=== PATIENT | male | born 1940 | race Caucasian/White ===

== ENCOUNTER → 2016-07-26 21:25 | Outpatient (CLI) | payer MEDICARE, BC ==
[2016-02-23 07:21] VITALS: BMI 34.3
[~2016-07-26 21:25] MED LIST: ACETAMINOPHEN325 MG PO; ADDERALL 10 MG10 MG PO; ADVIL200 MG PO; BAYER CHEWABLE81 MG PO; BYSTOLIC10 MG PO; FISH OIL 1,0001 CA1 PO; ISOSORBIDE MONO30 M1 PO; KLOR-CON 1010 MEQ PO; LISINOPRIL-HCTZ1 T11 PO; METOPROLOL TART50 MG PO; NORVASC5 MG PO; PLAVIX75 MG PO; PRAVACHOL40 MG PO; PRINIVIL20 MG PO; TESTOSTERON200 MG/ML IM; ZESTORETIC 20-1 EACH PO
[2016-07-26 22:10] LABS: CALC OSMOLALITY 284 mosm/kg (275-300); CALCIUM 9.4 mg/dL (8.5-10.1); CARBON DIOXIDE 26.7 mmol/L (21.0-32.0); CHLORIDE - SERUM 105 mmol/L (98-107); GLUCOSE 137 mg/dL (74-106); POTASSIUM - SERUM 3.8 mmol/L (3.5-5.1); SODIUM 141 mmol/L (136-145); UREA NITROGEN 18 mg/dL (7-18); eGFR NON AFRICAN AMERICAN 78 mL/min (90-120)
== END | disposition home or self-care (01) ==
LOC: D.LABREF 21:25
PROVIDERS: Nurse Practitioner
DX: I10 Essential (primary) hypertension (principal)

== ENCOUNTER → 2017-06-29 10:01 | Outpatient (CLI) | payer MEDICARE, BC ==
--- NOTE | ~2017-06-29 | OP ---
PATIENT NAME: ANA DUFFY MEDICAL RECORD: [id number] :44 LOCATION:D.CAT ADMISSION DATE: SURGEON: MIKE KING MD DATE OF OPERATION: 06/29/2017 PROCEDURES: 1. Left heart catheterization. 2. Selective coronary angiography. 3. Left ventriculogram. 4. Intravascular ultrasound of the LAD. PROCEDURE IN DETAIL: After informed consent was obtained and after a detailed explanation of the risks, benefits as well as alternative therapies, the patient elected to proceed with angiogram and angioplasty. The right radial area was prepped and draped in normal sterile fashion. Right radial artery was cannulated via modified Seldinger technique with placement of 5-Argentine sheath. All catheters exchanged through this sheath. FINDINGS: Left ventriculogram was performed in standard 30-degree YANEZ view, reveals preserved cardiac wall motion, ejection fraction 55%. SELECTIVE CORONARY ANGIOGRAPHY: 1. Left main is with no significant angiographic disease. 2. Left anterior descending has previously placed stent. This is widely patent with no significant restenosis. No disease elsewise greater than 20% throughout the LAD confirmed by intravascular ultrasound. 3. The left circumflex is a very large vessel with [id number] irregularities, but no flow-limiting stenosis. 4. The right coronary artery has previously placed stent. This is widely patent with no significant restenosis. No disease elsewise at the RCA or its branches. OVERALL IMPRESSION: Wide patency of the previously placed stents. No disease elsewise. Preserved left ventricular function. Evaluate noncardiac etiology of chest pain. TRANSINT:[id number] Voice Confirmation ID: [id number] DOCUMENT ID: [id number] MIKE KING MD at 1153 CC: [id number] DICTATION DATE: 06/29/17 1433 PANELBOARD OPERATOR: 06/29/17 1608 DEP CLI 06/29/17 [place] [address]
--- NOTE | ~2017-06-29 | HEMODYNAMI ---
PATIENT:ANA DUFFY MEDICAL RECORD: [id number] : 44 LOCATION:JUAN A ADMISSION DATE: 06/29/17 Generatedon:06/29/201714:35 Patient name: ANA DUFFY Patient #: [id number] SSN: : 1940 Date of study: 06/29/2017 Page: Of Hemodynamic Procedure Report Patient Data Patient Demographics Procedure consent was obtained First Name: ANA Gender: Male Last Name: TATI : 1940 Patient #: [id number] Age: 76 year(s) Race: Additional ID: [id number] Contact details [address]: [address] [place] [address] State: [place] City: [place] Zip code: [address] Past Medical History History of disease Date Diagnosis Comments CAD Allergies Allergen Reaction Date Comments Reported Sulfa drugs 02/23/2016 Lipitor 02/23/2016 Other allergy 02/23/2016 ampicillin Other allergy 06/29/2017 AMPICILLIN, SULFA, LIPITOR Admission Admission Data Admission Date: 06/29/2017 Admission Time: 10:01 Lab Results Lab Result Date: 06/29/2017 Lab Result Time: 0:00 Biochemistry Name Units Result Min Max BUN mg/dl 20 --(----)*- 7 18 Creatinine mg/dl 0.8 --(-*--)-- 0.6 1.3 CBC Name Units Result Min Max Hemoglobin g/dl 14 --(*---)-- 13.5 17.5 Procedure Procedure Types Cath Procedure Diagnostic Procedure LHC LHC w/Coronaries FFR/IVUS Intra-Coronary IVUS Initial Miscellaneous Procedures Moderate Sedation up to 15 minutes Procedure Description Procedure Date Procedure Date: 06/29/2017 Procedure Start Time: 14:19 Procedure End Time: 14:33 Procedure Staff Name Function Kirit Stokes MD Performing Physician Anne-Marie Webber RT Monitor Juan Alberto Kaplan RT Scrub Zak Zurita RN Nurse Procedure Data Cath Procedure Fluoroscopy Diagnostic fluoroscopy Total fluoroscopy Time: 3 time: 3 min min Diagnostic fluoroscopy Total fluoroscopy dose: 922 dose: 922 mGy mGy Contrast Material Contrast Material Type Amount (ml) Isovue 300 88 Entry Location Entry Primary Successful Side Size Upsize Upsize Entry Closure Albarado ccessful Closure Location (Fr) 1 (Fr) 2 (Fr) Remarks Device Remarks Radial Right 6 Fr Mechanical artery Short Compression Estimated blood loss: 5 ml Diagnostic catheters Device Type Used For End Catheter Placement DIAGNOSTIC Quebeck 110cm 5 Procedure Fr catheter ([id number]) Procedure Complications No complications Procedure Medications Medication Administration Route Dosage 0.9% NaCl I.V. 100 ml/hr Oxygen NC 2 l/min Heparin Flush Bag added to field 2 bags (1000units/500ml NS) Lidocaine 2% added to field 20 Radial Cocktail added to field 1 syringe (Verapomil 2mg/Nitro 400mcg/Heparin 1500units) Versed I.V. 2 mg Fentanyl I.V. 100 mcg Radial Cocktail I.A. 1 syringe (Verapomil 2mg/Nitro 400mcg/Heparin 1500units) Benadryl I.V. 50 mg Hemodynamics Rest HGB: 14 (g/dl) Heart Rate: 70 (bpm) Snapshots Pre Cath Intra NCS Post Cath Vital Signs Time Heart Resp SPO2 etCO2 NIBP (mmHg) Rhythm Pain Sedation Rate (ipm) (%) (mmHg) Status Level (bpm) 14:11:37 71 24 96 144/98(116) Paced 0 (11) 10(A) , No pain 14:16:20 69 18 94 147/97(112) Paced 0 (11) 10(A) , No pain 14:21:02 69 18 94 142/91(111) Paced 0 (11) 9(A) , No pain 14:25:45 70 16 93 0 131/72(106) Paced 0 (11) 9(A) , No pain 14:30:28 69 17 94 0 128/78(108) Paced 0 (11) 9(A) , No pain Medications Time Medication Route Dose Verified Delivered Reason Notes Effectiveness by by 14:14:07 0.9% NaCl I.V. 100 Zak Zak Per ml/hr Parminder dang RN RN 14:14:27 Benadryl I.V. 50 mg Zak Zak Per Lorigan Lorigan physician RN RN 14:14:27 Oxygen NC 2 l/min Zak Zak Per Parminder adng RN RN 14:14:39 Heparin Flush added 2 bags Zak Zak used for Bag to Parminder Zurita procedure (1000units/500ml field RN RN NS) 14:14:51 Lidocaine 2% added 20ml Zak Zak for local to vial Lorigan Parminder anesthetic RN RN 14:15:02 Radial Cocktail added 1 Zak Zak used for (Verapomil to syringe Lorigan Parminder procedure 2mg/Nitro field JOHNSON RN 400mcg/Heparin 1500units) 14:16:32 Versed I.V. 2 mg Zak Zak for sedation Parminder Zurita RN RN 14:16:43 Fentanyl I.V. 100 mcg Zak Zak for sedation Parminder Zurita RN RN 14:21:06 Radial Cocktail I.A. 1 Zak Kirit for (Verapomil syringe Lorigan Tauth MD vasodilation 2mg/Nitro RN 400mcg/Heparin 1500units) Procedure Log Time Note 13:52:00 Informed consent obtained and on chart 13:52:29 Diagnostic Cath status Elective 13:52:30 Zak Zurita RN sent for patient. Start room use. 13:52:32 Time tracking: Regular hours 13:52:47 Plan of Care:Hemodynamics will remain stable., Cardiac rhythm will remain stable., Comfort level will be maintained., Respiratory function will remain adequate., Patient/ family verbilizes understanding of procedure., Procedure tolerated without complication., Recovers from procedure without complications.. 14:02:25 Patient received from Pre/Post Procedure Room to CCL 1 Alert and oriented. Tansferred to table in Supine position. 14:02:27 Warm blankets applied, and markus hugger turned on for patient comfort. 14:02:27 Correct patient and procedure confirmed by team. 14:02:28 ECG and BP/O2 sat monitors applied to patient. 14:02:41 Family in waiting room. 14:02:42 Patient NPO since Midnight. 14:06:06 Vital chart was started 14:13:33 Baseline sample Acquired. 14:13:36 Rhythm: paced 14:13:38 Full Disclosure recording started 14:14:02 H&P Date Dictated: 06/29/2017 New H&P dictated by physician.. 14:14:03 Pre-procedure instructions explained to patient. 14:14:03 Pre-op teaching completed and patient verbalized understanding. 14:14:07 0.9% NaCl 100 ml/hr I.V. was administered by Zak Zurita RN; Per physician; 14:14:23 Patient allergic to Other allergyAMPICILLIN, SULFA, LIPITOR 14:14:26 Is the patient allergic to Iodine/contrast media? No. 14:14:27 Benadryl 50 mg I.V. was administered by Zak Zurita RN; Per physician; 14:14:27 Oxygen 2 l/min NC was administered by Zak Zurita RN; Per physician; 14:14:28 Is patient on blood thinner?Yes 14:14:30 ACC The patient was administered the following blood thiners within the last 24 hours: ACCPlavix 14:14:32 Patient diabetic? No. 14:14:35 Previous problem with sedation/anesthesia? No ? 14:14:35 Snore? Yes 14:14:39 Heparin Flush Bag (1000units/500ml NS) 2 bags added to field was administered by Zak Zurita RN; used for procedure; 14:14:39 Sleep apnea? Yes 14:14:41 Deviated septum? No 14:14:41 Opens mouth fully? Yes 14:14:42 Sticks out tongue? Yes 14:14:44 Airway obstruction? No ? 14:14:46 Dentures? No ? 14:14:51 Lidocaine 2% 20ml vial added to field was administered by Zak Zurita RN; for local anesthetic; 14:14:51 Pre procedure: right dorsailis pedis pulse 2+ Normal; easily identifiable; not easily obliterated 14:14:53 Modified Foreign's test Ulnar < 7 seconds 14:14:56 Patient pain scale 0/10 ?. 14:15:02 Radial Cocktail (Verapomil 2mg/Nitro 400mcg/Heparin 1500units) 1 syringe added to field was administered by Zak Zurita RN; used for procedure; 14:15:02 IV patent on arrival in left wrist with 0.9% NaCl at [facility]. 14:15:29 Lab Result : BUN 20 mg/dl 14:15:29 Lab Result : Creatinine 0.8 mg/dl 14:15:30 Lab Result : Hemoglobin 14 g/dl 14:15:37 Lab results completed and on chart. 14:15:50 Right Radial & Right Groin area was prepped with chlora-prep and draped in sterile fashion 14:15:52 Alarms reviewed by R. N. 14:15:52 Sharps counted by scrub and verified by R.N. 14:15:54 --------ALL STOP TIME OUT------ 14:15:54 Final Timeout: patient, procedure, and site verified with staff and physician. All members of the team are in agreement. 14:15:56 Right Radial & Right Groin site verified by team. 14:15:59 Physical assessment completed. ASA score P 2 - A patient with mild systemic disease as per Kirit Stokes MD. 14:16:02 Sedation plan: IV Moderate Sedation Medication:Versed, Fentanyl 14:16:24 Use device set Radial Dx or PCI 14:16:25 ACIST Syringe (76181) opened to sterile field. 14:16:26 Bag Decanter (2002S) opened to sterile field. 14:16:27 ACIST Hand Control (80495) opened to sterile field. 14:16:27 ACIST Manifold (53874) opened to sterile field. 14:16:28 Tegaderm 4 x 4 (1626W) opened to sterile field. 14:16:29 Medline Cath Pack ([id number]) opened to sterile field. 14:16:29 SHEATH 6FR Slender ([id number]) opened to sterile field. 14:16:30 DIAGNOSTIC WIRE .035 260cm J wire (278522) opened to sterile field. 14:16:31 MBrace Wrist Support ([id number]) opened to sterile field. 14:16:32 Versed 2 mg I.V. was administered by Zak Zurita RN; for sedation; 14:16:43 Fentanyl 100 mcg I.V. was administered by Zak Zurita RN; for sedation; 14:19:19 Procedure started. 14:19:26 Local anesthetic to right radial artery with Lidocaine 2% by Kirit Stokes MD.INITIAL ACCESS ONLY 14:19:27 Zero performed for pressure channel P1 14:20:39 A 6 Fr Short sheath was inserted into the Right Radial artery 14:21:06 Radial Cocktail (Verapomil 2mg/Nitro 400mcg/Heparin 1500units) 1 syringe I.A. was administered by Kirit Stokes MD; for vasodilation; 14:21:06 A DIAGNOSTIC Quebeck 110cm 5 Fr catheter (309293) was advanced over the wire and used for Procedure. 14:22:06 Injector settings: Ml/sec: 5, Volume: 15, 14:22:09 LV gram done using YANEZ 14:22:34 EF : 55 % 14:23:34 LCA angiography performed. 14:24:46 INFLATOR Merit BasixCompak (ML5082) opened to sterile field. 14:24:58 RCA angiography performed. 14:25:23 Catheter exchanged over wire. 14:25:59 GUIDE 6FR XBLAD 4.0 catheter ([id number]) opened to sterile field. 14:26:08 CHOICE PT Extra Support 182cm wire ([id number]) opened to sterile field. 14:26:32 6 Fr XBLAD 4 guide catheter was inserted over the wire 14:27:16 CHOICE PT 182 wire advanced. 14:27:19 Wire advanced across lesion. 14:28:08 [place] IVUS Catheter (27112S) opened to sterile field. 14:28:26 IVUS catheter advanced over wire. 14:29:42 IVUS pass to LAD lesion performed. 14:29:43 IVUS catheter removed over wire. 14:29:51 Guide catheter removed. 14:29:57 Wire removed. 14:31:07 TR BAND Large ([id number]) opened to sterile field. 14:31:25 Sheath removed intact; hemostasis achieved with Mechanical Compression to the Right Radial artery. 14:31:27 Procedure ended.(Physican Out) 14:31:30 Fluoroscopy time 03.00 minutes. 14:31:35 Flurop Dose total: 922 14:31:35 Fluoroscopy dose: 922 mGy 14:31:42 Contrast amount:Isovue 300 88ml. 14:31:44 Sharps counted by scrub and verified by R.N. 14:31:45 TR band inflated with 12cc of air. 14:31:51 Post procedure: right dorsailis pedis pulse 2+ Normal; easily identifiable; not easily obliterated. 14:31:54 Post-procedure physical assessment completed. ASA score P 2 - A patient with mild systemic disease as per Kirit Stokes MD. 14:31:57 Post procedure rhythm: unchanged. 14:31:59 Estimated blood loss: 5 ml 14:32:00 Post procedure instruction explained to patient.Patient verbalizes understanding. 14:32:01 Patient needs reinforcement of post procedure teaching. 14:33:03 Procedure type changed to Cath procedure, Diagnostic procedure, LHC, LHC w/Coronaries, FFR/IVUS, Intra-Coronary IVUS Initial, Miscellaneous Procedures, Moderate Sedation up to 15 minutes 14:33:36 Procedure and supply charges have been captured, reviewed, submitted and are correct. 14:33:38 Procedure Complication : No complications 14:33:44 Vital chart was stopped 14:33:48 Report given to Pre/Post Procedure Room. 14:33:49 See physician's report for complete and final results. 14:33:52 Patient transfered to Pre/Post Procedure Room with Bed. 14:33:54 Procedure ended. 14:33:54 Full Disclosure recording stopped 14:33:57 End room use (Document Last) Device Usage Item Name Manufacture Quantity Catalog Number Hospital Part Current Mini mal Lot# / Charge Number Stock Stock Serial# Code ACIST Acist 1 69621 081130 501091 972232 20 Syringe Medical (69079) Systems Inc Bag Decanter Microtek 1 2001S 897225 61181 281202 5 (2001S) Medical Inc. ACIST Hand Acist 1 11622 924161 749384 186802 5 Control Medical (15881) Systems Inc ACIST Acist 1 82257 790465 121095 696277 5 Manifold Medical (32631) Systems Inc Tegaderm 4 x 3M 1 1626W 284898 319569 632218 5 4 (1626W) Medline Cath Cardinal 1 [id number] 580609 95495 200656 5 [employer] ([id number]) SHEATH 6FR Terumo 1 [id number] 881909 306975 440541 40 Slender ([id number]) DIAGNOSTIC St Ej 1 063823 260311 129086 161560 30 WIRE .035 260cm J wire (030259) MBrace Wrist Advanced 1 [id number] 488946 60977 358411 5 Support Vascular ([id number]) Dynamics DIAGNOSTIC Terumo 1 405013 933612 974690 529421 5 Quebeck 110cm 5 Fr catheter (391656) INFLATOR Merit 1 GD9468 679758 933327 956538 15 [facility] Medical BasixCompak (DM0769) GUIDE 6FR Cardinal 1 [id number] 709726 828893 849697 3 XBLAD 4.0 Health catheter (66553651) CHOICE PT [place] 1 [id number] 642694 974498 693153 5 Extra Scientific Support 182cm wire ([id number]) [place] 1 99239X 892204 558926 071991 8 [place] IVUS Catheter (94633U) TR BAND Terumo 1 [id number] 613591 091058 767315 40 Large ([id number]) Signature Audit [place] Stage Time Signature Unsigned Intra-Procedure 06/29/2017 Anne-Marie Webber 2:35:08 PM RT(R) Signatures Monitor : Anne-Marie Webber Signature : RT Date : Time : [place] [address] [place] [address]
[~2017-06-29 10:01] MED LIST changes: +ENTRESTO 24 MG1 EACH PO
[2017-06-29 10:53] VITALS: BP 167/92; BMI 31.8
[2017-06-29 11:06] LABS: HEMATOCRIT 39.5 % (42.0-54.0); LYMPHOCYTES 30.1 % (15-50); MCH 31.2 pg (26.0-34.0); MCHC 35.4 g/dL (31.0-37.0); MEAN PLATELET VOLUME 9.8 fL (7.4-10.4); NEUTROPHILS 57.7 % (40-80); PLATELET COUNT 168 10x3/uL (130-400); RBC 4.49 10x6/uL (4.20-6.10); RDW 13.3 % (11.5-14.5); WBC 4.7 10x3/uL (4.8-10.8)
[2017-06-29 11:12] LABS: CALC OSMOLALITY 284 mosm/kg (275-300); CALCIUM 9.1 mg/dL (8.5-10.1); CARBON DIOXIDE 28.7 mmol/L (21.0-32.0); CHLORIDE - SERUM 106 mmol/L (98-107); CREATININE - SERUM 0.8 mg/dL (0.6-1.3); GLUCOSE 123 mg/dL (74-106); POTASSIUM - SERUM 3.2 mmol/L (3.5-5.1); SODIUM 141 mmol/L (136-145); UREA NITROGEN 20 mg/dL (7-18); eGFR NON AFRICAN AMERICAN > 90 mL/min (90-120)
== END | disposition home or self-care (01) ==
LOC: D.CATH 10:01
PROVIDERS: Internal Medicine Interventional Cardiology
DX: I25.119 Atherosclerotic heart disease of native coronary artery with unspecified angina pectoris (principal); Z01.812 Encounter for preprocedural laboratory examination

== ENCOUNTER → 2018-11-06 11:20 | Outpatient (CLI) | payer MEDICARE, BC ==
[2017-06-29 10:53] VITALS: BMI 31.8
[~2018-11-06 11:20] MED LIST changes: +COREG6.25 MG PO
--- NOTE | 2018-11-13 18:38 | ST ---
PATIENT:ANA DUFFY MEDICAL RECORD: [id number] SEX: M LOCATION:[facility] ORDER #: ADMISSION DATE: 11/06/18 AGE OF PATIENT: 78 REFERRING PHYSICIAN: INTERPRETING PHYSICIAN: MIKE KING MD DATE OF SERVICE: 11/06/2018 PROCEDURE: Nuclear stress test. INDICATION: Angina, coronary artery disease, shortness of breath, dyspnea on exertion, cardiomyopathy. He was exercised on standard Lexiscan protocol with 28 mCi of sestamibi injected at peak stress, 10 mCi used previously for rest images. FINDINGS: Gated SPECT reveals a dilated cardiomyopathy, ejection fraction 27%. SPECT imaging: Cardiolite was used as myocardial perfusion agent. There is reversible ischemia inferiorly as well as mixed perfusion defect anteriorly, partially fixed, partially reversible extending to the apex. This includes the basal, mid, apical anterior segments as well as the basal mid inferior segments. There is reversibility throughout the entire area. OVERALL IMPRESSION: This is a high risk nuclear stress test, reversible ischemia anteriorly, inferiorly, and apically with a dilated cardiomyopathy, ejection fraction 27%, suggestive of multivessel coronary artery disease. We will proceed with coronary angiography as followup study. TRANSINT:[id number] Voice Confirmation ID: [id number] DOCUMENT ID: [id number] MIKE KING MD at 1838 CC: [id number] DICTATION DATE: 11/07/18 0939 RAILROAD CAR INSPECTOR: 11/07/18 1041 DEP CLI 11/06/18 [facility] [address] [place] [id number]
== END | disposition home or self-care (01) ==
LOC: D.HCCARDIO 11:20
PROVIDERS: ATTEND Internal Medicine Interventional Cardiology
DX: I25.10 Atherosclerotic heart disease of native coronary artery without angina pectoris (principal)

== ENCOUNTER 2018-11-10 08:03 | Outpatient (CLI) | payer MEDICARE, BC ==
[~2018-11-10] VITALS: Ht 182.9 cm; Wt 106.4 kg
--- NOTE | ~2018-11-10 | HEMODYNAMI ---
PATIENT:ANA DUFFY MEDICAL RECORD: [id number] : 44 LOCATION:[facility] ADMISSION DATE: 11/10/18 Generatedon:11/10/201810:33 Patient name: ANA DUFFY Patient #: [id number] SSN: : 1940 Date of study: 11/10/2018 Page: Of Hemodynamic Procedure Report Patient Data Patient Demographics Procedure consent was obtained First Name: ANA Gender: Male Last Name: TATI : 1940 Patient #: [id number] Age: 78 year(s) Race: Additional ID: [id number] Contact details [address]: [address] [place] [address] rd State: [place] City: [place] Zip code: [address] Past Medical History History of disease Date Diagnosis Comments CAD Allergies Allergen Reaction Date Comments Reported Sulfa drugs 02/23/2016 Lipitor 02/23/2016 Other allergy 02/23/2016 ampicillin Other allergy 06/29/2017 AMPICILLIN, SULFA, LIPITOR Other allergy 11/10/2018 AMPICILLIN, LIPITOR, SULFA Admission Admission Data Admission Date: 11/10/2018 Admission Time: 8:03 Weight (lbs.): 233.69 Weight (kg.): 106 Lab Results Lab Result Date: 11/10/2018 Lab Result Time: 0:00 Biochemistry Name Units Result Min Max BUN mg/dl 20 --(----)*- 7 18 Creatinine mg/dl 0.9 --(-*--)-- 0.6 1.3 eGFR ml/min 87 -*(----)-- 90 120 NONAFRICAN CBC Name Units Result Min Max Hematocrit % 40.4 -*(----)-- 42 54 Hemoglobin g/dl 13.9 --(*---)-- 13.5 17.5 Procedure Procedure Types Cath Procedure Diagnostic Procedure LHC LHC w/Coronaries Procedure Description Procedure Date Procedure Date: 11/10/2018 Procedure Start Time: 10:20 Procedure End Time: 10:30 Procedure Staff Name Function Kirit Stokes MD Performing Physician Anne-Marie Webber RT Monitor Heath Barnes RT Scrub Mariana Castro RT Scrub Nasima Messina RN Nurse Procedure Data Cath Procedure Fluoroscopy Diagnostic fluoroscopy Total fluoroscopy Time: 2.1 time: 2.1 min min Diagnostic fluoroscopy Total fluoroscopy dose: 674 dose: 674 mGy mGy Contrast Material Contrast Material Type Amount (ml) Isovue 300 49 Entry Location Entry Primary Successful Side Size Upsize Upsize Entry Closure Albarado ccessful Closure Location (Fr) 1 (Fr) 2 (Fr) Remarks Device Remarks Radial Right 6 Fr Mechanical artery Short Compression Estimated blood loss: 5 ml Diagnostic catheters Device Type Used For End Catheter Placement DIAGNOSTIC [place] 110cm 5 Procedure Fr catheter ([id number]) Procedure Complications No complications Procedure Medications Medication Administration Route Dosage 0.9% NaCl I.V. 100 ml/hr Oxygen etCO2 Nasal cannula 2 l/min Lidocaine 2% added to field 20 Heparin Flush Bag added to field 2 bags (1000units/500ml NS) Radial Cocktail added to field 1 syringe (Verapamil 2mg/Nitro 400mcg/Heparin 1500units) Versed I.V. 2 mg Fentanyl I.V. 50 mcg Fentanyl I.V. 50 mcg Hemodynamics Rest HGB: 13.9 (g/dl) Heart Rate: 85 (bpm) Snapshots Pre Cath Intra NCS Post Cath Vital Signs Time Heart Resp SPO2 etCO2 NIBP (mmHg) Rhythm Pain Sedation Rate (ipm) (%) (mmHg) Status Level (bpm) 9:53:37 82 19 98 28.4 Measuring NSR 0 (11) 10(A) , No pain 9:54:10 84 13 97 30.6 134/105(109) NSR 0 (11) 10(A) , No pain 9:58:28 80 15 97 28.4 125/100(113) NSR 0 (11) 10(A) , No pain 10:02:42 77 17 98 31.3 131/97(113) NSR 0 (11) 10(A) , No pain 10:06:58 75 19 98 14.2 124/94(111) NSR 0 (11) 10(A) , No pain 10:11:12 74 17 98 17.1 119/95(115) NSR 0 (11) 10(A) , No pain 10:16:05 76 17 96 33.6 128/96(114) NSR 0 (11) 10(A) , No pain 10:20:21 76 16 97 35.1 119/99(112) NSR 0 (11) 10(A) , No pain 10:24:35 78 22 97 35.8 119/85(97) NSR 0 (11) 10(A) , No pain 10:28:47 76 21 98 16.4 124/91(100) NSR 0 (11) 10(A) , No pain Medications Time Medication Route Dose Verified Delivered Reason Notes E ffectiveness by by 9:54:41 0.9% NaCl I.V. 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 2 mg Kirit Nasima for Divya Messina sedation RN 10:20:30 Fentanyl I.V. 50 mcg Kirit Nasima for Divya Messina sedation RN 10:24:29 Fentanyl I.V. 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 9:34:21 Diagnostic Cath status Elective 9:34:24 Nasima Messina RN sent for patient. Start room use. 9:34:25 Time tracking: Regular hours (M-F 7:00 - 5:00) 9:34:29 Plan of Care:Hemodynamics will remain stable., Cardiac rhythm will remain stable., Comfort level will be maintained., Respiratory function will remain adequate., Patient/ family verbilizes understanding of procedure., Procedure tolerated without complication., Recovers from procedure without complications.. 9:41:40 Patient Weight : 233.69 lbs 9:43:27 Patient allergic to Other allergyAMPICILLIN, LIPITOR, SULFA 9::48 Lab Result : BUN 20 mg/dl 9::48 Lab Result : eGFR NONAFRICAN 87 ml/min 9:45:48 Lab Result : Creatinine 0.9 mg/dl 9:45:48 Lab Result : Hematocrit 40.4 % 9:45:48 Lab Result : Hemoglobin 13.9 g/dl 9:47:42 Patient received from Pre/Post Procedure Room to CCL 1 Alert and oriented. Tansferred to table in Supine position. 9:47:43 Warm blankets applied, and markus hugger turned on for patient comfort. 9:47:43 Correct patient and procedure confirmed by team. 9:47:44 ECG and BP/O2 sat monitors applied to patient. 9:51:48 Vital chart was started 9:54:41 0.9% NaCl 100 ml/hr I.V. was administered by Nasima Messina RN; used for procedure; 9:54:47 Oxygen 2 l/min etCO2 Nasal cannula was administered by Nasima Messina RN; used for procedure; 9:54:51 Lidocaine 2% 20ml vial added to field was administered by Kirit Stokes MD; for local anesthetic; 9:54:57 Heparin Flush Bag (1000units/500ml NS) 2 bags added to field was administered by Kirit Stokes MD; used for procedure; 9:55:02 Radial Cocktail (Verapamil 2mg/Nitro 400mcg/Heparin 1500units) 1 syringe added to field was administered by Kirit Stokes MD; used for procedure; 9:55:15 Rhythm: sinus rhythm , paced 9:55:19 Baseline sample Acquired. 9:55:20 Full Disclosure recording started 9:55:21 Pre-procedure instructions explained to patient. 9:55:21 Pre-op teaching completed and patient verbalized understanding. 9:55:30 H&P Date Dictated: 10/30/2018 Within 30 days and on chart., H&P Addendum completed by physician on day of procedure. (MUST COMPLETE FOR ALL OUTPATIENTS). 9:55:34 Patient NPO since Midnight. 9:55:36 Family in patients room. 9:55:38 Is patient on blood thinner?Yes 9:55:41 ACC The patient was administered the following blood thiners within the last 24 hours: ACCPlavix 9:55:44 Patient diabetic? No. 9:55:46 Previous problem with sedation/anesthesia? No ? 9:55:47 Snore? Yes 9:55:48 Sleep apnea? Yes 9:55:50 Deviated septum? No 9:55:51 Opens mouth fully? Yes 9:55:53 Sticks out tongue? Yes 9:55:55 Airway obstruction? No ? 9:55:58 Dentures? No ? 9:56:02 Modified Foreign's test Radial < 7 seconds 9:56:05 Patient pain scale 0/10 ?. 9:56:17 IV patent on arrival in left hand with 0.9% NaCl at [facility]. 9:56:21 Lab results completed and on chart. 9:56:24 Right Radial & Right Groin area was prepped with chlora-prep and draped in sterile fashion 9:56:26 Alarms reviewed by R. N. 9:56:26 Sharps counted by scrub and verified by R.N. 9:56:30 Use device set Radial Dx or PCI 9:56:31 ACIST Syringe (21475) opened to sterile field. 9:56:33 Bag Decanter (2002S) opened to sterile field. 9:56:33 ACIST Hand Control (47291) opened to sterile field. 9:56:34 ACIST Manifold (47890) opened to sterile field. 9:56:34 Tegaderm 4 x 4 (1626W) opened to sterile field. 9:56:37 Medline Cath Pack ([id number]) opened to sterile field. 9:56:38 MBrace Wrist Support ([id number]) opened to sterile field. 9:56:39 EMERALD Guide Wire (862-815) opened to sterile field. 9:57:05 SHEATH 6FR RAIN (2660012) opened to sterile field. 10:19:43 --------ALL STOP TIME OUT------ 10:19:43 Final Timeout: patient, procedure, and site verified with staff and physician. All members of the team are in agreement. 10:19:45 Right Radial & Right Groin site verified by team. 10:19:48 Fire Safety Assessment: A--An alcohol-based skin anteseptic being used preoperatively., C--Open oxygen or nitrous oxide is being used., D--An ESU, laser, or fiber-optic light is being used. 10:19:52 Physical assessment completed. ASA score P 2 - A patient with mild systemic disease as per Kirit Stokes MD. 10:19:56 2) 60-89 Mildly reduced kidney function, and other findings (as for stage 1) point to kidney disease. 10:20:00 Maximum allowable contrast does (3.7 X eGFR X 0.75)241 ml. 10:20:02 Sedation plan: IV Moderate Sedation Medication:Versed, Fentanyl 10::23 Versed 2 mg I.V. was administered by Nasima Messina RN; for sedation; 10:20:30 Fentanyl 50 mcg I.V. was administered by Nasima Messina RN; for sedation; 10:20:39 Procedure started. 10:20:45 Local anesthetic to right radial artery with Lidocaine 2% by Kirit Stokes MD.INITIAL ACCESS ONLY 10:20:58 A 6 Fr Short sheath was inserted into the Right Radial artery 10:22:11 A DIAGNOSTIC [place] 110cm 5 Fr catheter ([id number]) was advanced over the wire and used for Procedure. 10:23:20 LV gram done using YANEZ 10::23 Injector settings: Ml/sec: 5, Volume: 15, 10:23:45 EF : 30 % 10:24:28 RCA angiography performed. 10:24:29 Fentanyl 50 mcg I.V. was administered by Nasima Messina RN; for sedation; 10:24:31 Catheter exchanged over wire. 10:24:40 UNABLE TO ENGAGE LCA 10:25:12 GUIDE 6FR XBLAD 3.5 SH catheter ([id number]) opened to sterile field. 10:27:28 LCA angiography performed. 10:27:31 Catheter removed. 10:27:38 Procedure ended.(Physican Out) 10::59 TR BAND Standard ([id number]) opened to sterile field. 10:28:24 Sheath removed intact; hemostasis achieved with Mechanical Compression to the Right Radial artery. 10::54 Fluoroscopy time 02.10 minutes. 10::58 Fluoroscopy dose: 674 mGy 10::58 Flurop Dose total: 674 10:29:04 Contrast amount:Isovue 300 49ml. 10:29:05 Sharps counted by scrub and verified by R.N. 10:29:23 Post-procedure physical assessment completed. ASA score P 3 - A patient with severe systemic disease as per Kirit Stokes MD. 10:29:26 Post procedure rhythm: unchanged. 10:29:28 Estimated blood loss: 5 ml 10:29:29 Post procedure instruction explained to patient.Patient verbalizes understanding. 10:29:29 Patient needs reinforcement of post procedure teaching. 10:29:33 TR band inflated with 8cc of air. 10:30:06 Procedure and supply charges have been captured, reviewed, submitted and are correct. 10:30:09 Procedure Complication : No complications 10:30:11 Vital chart was stopped 10:30:11 See physician's report for complete and final results. 10:30:13 Report given to Pre/Post Procedure Room. 10:30:16 Patient transfered to Pre/Post Procedure Room with Bed. 10:30:18 Procedure ended. 10:30:18 Full Disclosure recording stopped 10::24 End room use (Document Last) Device Usage Item Name Manufacture Quantity Catalog Hospital Part Current Minima l Lot# / Number Charge Number Stock Stock Serial# Code ACIST Acist 1 75240 172412 191237 [id number] 20 Syringe Medical (78269) Systems Inc Bag Microtek 1 724462 73435 091464 5 Decanter Medical Inc. () ACIST Hand Acist 1 89895 974286 179269 258701 5 Control Medical (08395) Systems Inc ACIST Acist 1 91078 692707 583119 212014 5 Manifold Medical (80015) Systems Inc Tegaderm 4 3M 1 1626W 141531 372302 035803 5 x 4 (1626W) Medline Medline 1 [id number] 843673 10859 252143 5 Cath Pack ([id number]) MBrace Advanced 1 140-0250-00 401837 98482 443317 5 Wrist Vascular Support Dynamics ([id number]) EMERALD Cardinal 1 654-479 242570 733198 035312 5 Guide Wire Health (656-996) SHEATH 6FR Cardinal 1 5773004 109329 1251898 759108 5 RAIN [facility] (0388061) DIAGNOSTIC Terumo 1 40-3060 518391 446502 971461 5 [place] 110cm 5 Fr catheter (255652) GUIDE 6FR Cardinal 1 [id number] 728628 711737 561704 3 XBLAD 3.5 [facility] catheter ([id number]) TR BAND Terumo 1 UIR61-IOP 936833 879570 581314 40 Standard ([id number]) Signature Audit [place] Stage Time Signature Unsigned Intra-Procedure 11/10/2018 Anne-Marie Webber 10:33:45 AM RT(R) Signatures Monitor : Anne-Marie Webber Signature : RT Date : Time : [address] [address]
[~2018-11-10 08:03] MED LIST changes: -COREG6.25 MG PO
[2018-11-10 08:33] VITALS: Ht 182.9 cm; Wt 106.4 kg
[2018-11-10 08:40] LABS: BASOPHILS 1.2 % (0-2); EOSINOPHILS 4.4 % (0-7); HEMATOCRIT 40.4 % (42.0-54.0); HEMOGLOBIN 13.9 g/dL (13.5-17.5); IMMATURE GRANULOCYTES 0.2 % (0-5); MCH 31.4 pg (26.0-34.0); MCHC 34.4 g/dL (31.0-37.0); MCV 91.4 fL (80.0-100.0); MEAN PLATELET VOLUME 10.5 fL (7.4-10.4); MONOCYTES 8.5 % (2-11); NEUTROPHILS 56.7 % (40-80); PLATELET COUNT 159 10x3/uL (130-400); RBC 4.42 10x6/uL (4.20-6.10); RDW 13.3 % (11.5-14.5); WBC 5.2 10x3/uL (4.8-10.8)
[2018-11-10 08:52] LABS: CALC OSMOLALITY 284 mosm/kg (275-300); CALCIUM 8.9 mg/dL (8.5-10.1); CARBON DIOXIDE 25.2 mmol/L (21.0-32.0); CHLORIDE - SERUM 106 mmol/L (98-107); CREATININE - SERUM 0.9 mg/dL (0.6-1.3); GLUCOSE 109 mg/dL (74-106); POTASSIUM - SERUM 3.8 mmol/L (3.5-5.1); SODIUM 141 mmol/L (136-145); UREA NITROGEN 20 mg/dL (7-18); eGFR NON AFRICAN AMERICAN 87 mL/min (90-120)
--- NOTE | 2018-11-10 10:40 | NUR ---
PT ARRIVED BY STRETCHER. PLACED ON MONITORS. ASSESSMENT COMPLETE. FAMILY AT BEDSIDE. DR. KING ROUNDED AND SPOKE WITH PT AND PT'S FAMILY.
[2018-11-10] MEDS ORDERED: COREG6.25 MG PO (10:48)
--- NOTE | 2018-11-10 10:55 | NUR ---
PT RESTING COMFORTABLY. VSS. RIGHT RADIAL TR BAND IN PLACE. NO BLEEDING/HEMATOMA NOTED.
--- NOTE | 2018-11-10 11:00 | NUR ---
[facility]CRIPTION CALLED IN TO [facility] PER PT REQUEST. SPOKE WITH NICK, PHARMACIST.
--- NOTE | 2018-11-10 11:30 | NUR ---
4cc OF AIR REMOVED FROM TR BAND. TOLERATED WELL. NO BLEEDING/HEMATOMA NOTED. FAMILY AT BEDSIDE. VSS. WILL CONTINUE TO MONITOR.
--- NOTE | 2018-11-10 11:50 | NUR ---
PT SITTING UP IN BED. SET UP WITH SANDWICH TRAY AND DRINK. VSS. 4cc OF AIR REMOVED FROM TR BAND. NO BLEEDING/HEMATOMA NOTED. WILL CONTINUE TO MONITOR.
--- NOTE | 2018-11-10 12:05 | NUR ---
2cc OF AIR REMOVED FROM TR BAND. NO BLEEDING/HEMATOMA NOTED. PT RESTING COMFORTABLY. VSS. DENIES NAUSEA/PAIN. WILL CONTINUE TO MONITOR.
--- NOTE | 2018-11-10 12:10 | NUR ---
LEFT ARM PIV D/C'D WITH CATH TIP INTACT. PT TOLERATED WELL. VSS AT THIS TIME. RIGHT WRIST TR BAND IN PLACE. NO BLEEDING/HEMATOMA NOTED. RIGHT WRIST BRACE IN PLACE. PT INSTRUCTED TO KEEP ON FOR 2 HOURS AFTER ARRIVAL HOME. HE VOICED UNDERSTANDING. PT INSTRUCTED TO GET UP AND DRESSED. FAMILY AT BEDSIDE FOR ASSISTANCE. CALL LIGHT WITHIN REACH.
--- NOTE | 2018-11-10 12:20 | NUR ---
TR BAND REMOVED. DRESSING APPLIED. NO BLEEDING/HEMATOMA NOTED. PT AMBULATED TO RESTROOM. VOIDED WITHOUT DIFFICULTY.
--- NOTE | 2018-11-10 12:35 | NUR ---
DISCUSSED DISCHARGE INSTRUCTIONS WITH PT AND PT'S FAMILY. THEY VOICED UNDERSTANDING. RIGHT WRIST DRESSING C/D/I. NO S/S OF HEMATOMA NOTED.
--- NOTE | 2018-11-10 12:40 | NUR ---
PT TAKEN OUT TO VEHICLE BY WHEELCHAIR. NO S/S OF DISTRESS NOTED. ALL BELONGINGS AND PAPERWORK IN HAND.
--- NOTE | 2018-11-13 18:38 | OP ---
PATIENT NAME: ANA DUFFY MEDICAL RECORD: [id number] :44 LOCATION:[facility] ADMISSION DATE: SURGEON: MIKE KING MD DATE OF OPERATION: 11/10/2018 DATE OF SERVICE: 11/10/2018 PROCEDURES: 1. Left heart catheterization. 2. Selective coronary angiography. 3. Left ventriculogram. INDICATION: Angina, coronary artery disease, cardiomyopathy, congestive heart failure, abnormal nuclear stress test. PROCEDURE IN DETAIL: After informed consent was obtained and after a detailed explanation of risks, benefits as well as alternative therapies, the patient elected to proceed with angiogram and heart catheterization. The right radial area was prepped and draped in normal sterile fashion. Right radial artery was cannulated via modified Seldinger technique with placement of 5-Yoruba sheath. All catheters exchanged through this sheath. FINDINGS: Left ventriculogram was performed in standard 30-degree YANEZ view reveals global hypokinesis throughout all segments. Overall ejection fraction in the 25% range. SELECTIVE CORONARY ANGIOGRAPHY: 1. Left main is with no significant angiographic disease. 2. Left anterior descending has previously placed stents. The stents are widely patent with no significant restenosis. 3. No disease elsewise of the LAD. 4. The left circumflex is large, dominant with no significant stenosis. 5. Right coronary is large, dominant with no significant stenosis. OVERALL IMPRESSION: Severe cardiomyopathy, but no new coronary artery disease. Center medical management on treatment of the cardiomyopathy. TRANSINT:[id number] Voice Confirmation ID: [id number] DOCUMENT ID: [id number] MIKE KING MD at 1838 CC: [id number] DICTATION DATE: 11/10/18 1032 DIGITAL MEDIA ANALYST: 11/10/18 1117 DEP CLI 11/10/18 [place] [id number] [place] [id number]
== END 2018-11-10 12:40 | disposition home or self-care (01) ==
LOC: D.CATH 08:03
PROVIDERS: ATTEND Internal Medicine Interventional Cardiology
DX: I25.119 Atherosclerotic heart disease of native coronary artery with unspecified angina pectoris (principal); I50.9 Heart failure, unspecified; I42.9 Cardiomyopathy, unspecified; Z01.812 Encounter for preprocedural laboratory examination

== ENCOUNTER → 2019-02-07 13:17 | Outpatient (CLI) | payer MEDICARE, BC ==
[2018-11-10 08:33] VITALS: BMI 31.8
[~2019-02-07 13:17] MED LIST changes: +COREG6.25 MG PO
--- NOTE | 2019-02-12 11:10 | EC ---
PATIENT:ANA DUFFY DATE OF SERVICE: 02/07/19 SEX: M MEDICAL RECORD: [id number] DATE OF : 44 LOCATION:[facility] AGE OF PATIENT: 78 ADMISSION DATE: 02/07/19 REFERRING PHYSICIAN: INTERPRETING PHYSICIAN: MIKE STOKES MD ECHOCARDIOGRAM REPORT ECHO CHARGES 4 ECHO COMPLETE Date: 02/07/19 CLINICAL DIAGNOSIS: CAD HX OF ISCHEMIC CARDIOMYOPATHY/HTN//PACER/MR/T R/AI ECHOCARDIOGRAPHIC MEASUREMENTS (adult normal given) AC root (d.<3.7cm) 3.6 cm LV Septum d (<1.2 cm> 1.2 cm Valve Excursion 1.3 cm LV Septum (systole) 1.3 cm Left Atria (s.<4.0cm> 5.5 cm LVPW d(<1.2cm) 1.3 cm RV (d.<2.3cm) 5.1 cm LVPW (sytole) 1.5 cm LV diastole(<5.6CM) 6.7 cm MV E-F(>70mm/sec) cm LV systole 5.5 cm LVOT Diameter 2.0 cm MV exc.(>10mm) 1.5 cm Est.ejection fraction (50-75%) % DOPPLER: LVIT cm/sec A 24.0 cm/sec E 74.0 cm/sec LA cm/sec RVSP 22 mmHg LVOT 82 cm/sec AOP1/2T m/s Asc. Ao 117 cm/sec RVOT 58 cm/sec RA cm/sec PA 99 cm/sec AV Gradient Peak 5.45 mmHg AV Mean 2.77 mmHg AV Area 2.1 cm MV Gradient Peak 4.45 mmHg MV Mean 1.46 mmHg MV Area cm COMMENTS: Angular Developer: 2 DEXTER KNOX Transcription Typist: 1 Dr. Stokes TAPE# PACS Pericardial Effusion N DATE OF SERVICE: FINDINGS: 1. Left ventricular chamber size is dilated. Left ventricular systolic function is markedly reduced at 15% to 20%. 2. Left atrium, right atrium, and right ventricular chamber sizes are dilated giving 4-chamber dilatation. Left atrium measures 5.5 cm. 3. Valvular structures have normal structure and motion. 4. Doppler interrogation reveals mild aortic insufficiency, mild mitral ECHOCARDIOGRAM REPORT [id number] ANA DUFFY regurgitation, mild tricuspid regurgitation, no other valvular insufficiency or stenosis. Pulmonary systolic pressure is estimated at 22 mmHg. 5. No evidence of pericardial effusion or left ventricular thrombus. TRANSINT:[id number] Voice Confirmation ID: [id number] DOCUMENT ID: [id number] MIKE STOKES MD at 1110 CC: [id number] DICTATION DATE: 02/08/19 1353 CREAM SEPARATOR OPERATOR: 02/08/19 1416 DEP CLI 02/07/19 [place] [id number] [place] [address]
== END | disposition home or self-care (01) ==
LOC: D.HCCECHO 13:17 → D.HCCARDIO 13:30
PROVIDERS: ATTEND Internal Medicine Interventional Cardiology
DX: I25.10 Atherosclerotic heart disease of native coronary artery without angina pectoris (principal)